=== PATIENT | male | born 1995 | race Caucasian/White ===

== ENCOUNTER 2018-10-05 16:24 | Emergency (ER) | payer MEDICAID ==
[~2018-10-05] VITALS: Ht 177.8 cm; Wt 179.6 kg
[2018-10-05] MEDS ORDERED: ALBU8HFA IH (16:42)
[2018-10-05 19:21] VITALS: BP 132/73
== END 2018-10-05 19:22 | disposition home or self-care (01) ==
LOC: EMS 16:27
DX: F41.9 Anxiety disorder, unspecified (principal); R06.02 Shortness of breath; J45.909 Unspecified asthma, uncomplicated